=== PATIENT | male | born 1990 | race Caucasian/White ===

== ENCOUNTER 2019-01-06 22:22 | Emergency (ER) | payer SELFPAY ==
[2019-01-06] MEDS: ONDANSETRON (ODT) 4 MG TAB ODT (22:58)
[2019-01-06] MEDS: KETOROLAC 60 MG INJ IM (22:59)
[2019-01-06] MEDS: KETOROLAC 30 MG INJ IM ×2 (22:59→23:04)
[2019-01-06] MEDS: ACET/BUTAL/CAFF TAB PO (23:35)
== END 2019-01-06 23:53 | disposition home or self-care (01) ==
LOC: FTE 22:22
DX: G43.019 Migraine without aura, intractable, without status migrainosus (principal)
CPT/HCPCS: 96372; 99284-25

== ENCOUNTER 2019-01-07 09:08 | Emergency (ER) | payer SELFPAY ==
[2019-01-07] MEDS: SOD CHLORIDE 0.9% 1,000 ML IV (09:39)
[2019-01-07] MEDS: PROCHLORPERAZINE 10 MG INJ IV (09:40)
[2019-01-07] MEDS: DIPHENHYDRAMINE 50 MG INJ IV (09:40)
[2019-01-07] MEDS: KETOROLAC 30 MG INJ IV (09:40)
== END 2019-01-07 10:48 | disposition home or self-care (01) ==
LOC: FTE 09:08
DX: G43.909 Migraine, unspecified, not intractable, without status migrainosus (principal)
CPT/HCPCS: 70450; 96374; 96375; 99285-25